=== PATIENT | male | born 1965 | race Caucasian/White ===

== ENCOUNTER 2020-06-30 12:11 | Emergency (ER) | payer BC ==
[~2020-06-30] VITALS: Ht 188 cm; Wt 117.9 kg
[2020-06-30] MEDS ORDERED: MORPHINE SULFAT15 MG PO (12:47)
[2020-06-30] MEDS ORDERED: ATIVAN0.5 MG PO (12:47)
[2020-06-30] MEDS ORDERED: NAPROSYN500 MG PO (12:47)
== END 2020-06-30 12:58 | disposition home or self-care (01) ==
LOC: ED 12:11
DX: S16.1XXA Strain of muscle, fascia and tendon at neck level, initial encounter (principal); F17.200 Nicotine dependence, unspecified, uncomplicated; Z91.030 Bee allergy status; V69.9XXA Occupant (driver) (passenger) of heavy transport vehicle injured in unspecified traffic accident, initial encounter
CPT/HCPCS: 99283

== ENCOUNTER 2020-07-04 11:33 | Emergency (ER) | payer OTHER, BC ==
[~2020-07-04] VITALS: Ht 188 cm; Wt 117.9 kg
[~2020-07-04 11:33] MED LIST: ATIVAN0.5 MG PO; MORPHINE SULFAT15 MG PO; NAPROSYN500 MG PO
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
== END 2020-07-04 15:47 | disposition home or self-care (01) ==
LOC: ED 11:33
DX: S16.1XXA Strain of muscle, fascia and tendon at neck level, initial encounter (principal); M54.12 Radiculopathy, cervical region; F17.200 Nicotine dependence, unspecified, uncomplicated; Z91.030 Bee allergy status; V29.59XA Motorcycle passenger injured in collision with other motor vehicles in traffic accident, initial encounter
CPT/HCPCS: 72141; 96374; 96375; 99283-25; J1885; J2060

== ENCOUNTER 2020-11-20 16:38 | Emergency (ER) | payer SELFPAY ==
[~2020-11-20] VITALS: Ht 188 cm; Wt 117.9 kg
[2020-11-20] MEDS ORDERED: PERCOCET 5-3251 EACH PO (18:29)
[2020-11-20] MEDS ORDERED: ULTRA-LIGHT RO1 EACH MISC (18:33)
[2020-11-20] MEDS ORDERED: PREDNISONE20 MG PO (19:06)
== END 2020-11-20 19:23 | disposition home or self-care (01) ==
LOC: ED 16:38
DX: S76.912A Strain of unspecified muscles, fascia and tendons at thigh level, left thigh, initial encounter (principal); W18.2XXA Fall in (into) shower or empty bathtub, initial encounter; F17.200 Nicotine dependence, unspecified, uncomplicated; Z91.030 Bee allergy status
CPT/HCPCS: 73502; 73552; 80053; 82550; 85025; 96374; 96375; 99283-25; J1100; J1170; J2270

== ENCOUNTER 2021-07-21 09:17 | Emergency (ER) | payer SELFPAY ==
[~2021-07-21] VITALS: Ht 188 cm; Wt 117.9 kg
[~2021-07-21 09:17] MED LIST changes: +PERCOCET 5-3251 EACH PO; +PREDNISONE20 MG PO; +ULTRA-LIGHT RO1 EACH MISC
[2021-07-21] MEDS ORDERED: PENICILLIN V P500 MG PO (13:07)
--- NOTE | 2021-07-22 19:02 | EKG ---
[facility] [address] [place] [address] Signed Sinus tachycardia with premature atrial complexes Right bundle branch block Left anterior fascicular block Bifascicular block Abnormal ECG No previous ECGs available Confirmed by EVELYNE MATUTE MD ([id number]) on 07/22/2021 7:02:22 PM Electronically Signed By: EVELYNE MATUTE MD 07/22/211901 PATIENT NAME: EMILYMAX Electrocardiogram DATE OF : 67 PHYSICIAN: EVELYNE MATUTE MD REPORT #: [id number] REPORT IS CONFIDENTIAL AND NOT TO BE RELEASED WITHOUT AUTHORIZATION
== END 2021-07-21 13:52 | disposition home or self-care (01) ==
LOC: ED 09:17
DX: R07.2 Precordial pain (principal); F15.90 Other stimulant use, unspecified, uncomplicated; K08.89 Other specified disorders of teeth and supporting structures; F17.200 Nicotine dependence, unspecified, uncomplicated; Z91.030 Bee allergy status
CPT/HCPCS: 71045; 80053; 81001; 83735; 84484; 85025; 93005; 93010; 96374; 96376; 99285-25; G0480; J2060; J7030

== ENCOUNTER 2021-08-20 15:54 | Emergency (ER) | payer OTHER ==
[~2021-08-20] VITALS: Ht 188 cm; Wt 117.9 kg
[~2021-08-20 15:54] MED LIST changes: +PENICILLIN V P500 MG PO
--- OUTSIDE RECORDS SUMMARY | 2021-08-20 16:00 | XMS ---
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 Care Guidelines exist for the following facilities: [facility] ( 02/17/2018 ) Care History Medical/Surgical 08/13/2016 [facility] Patient has been presenting to various ERs stating that he has glass in his eyes, up his nostrils, on his head, and neck. Upon each visit he has become argumentative with the provider stating "give me a provider that can see the glass" Patient in clear need of mental health resources but has declined attempts when offered. Patient has needed safety security officer upon discharge. Unknown if patient insured as he refuses to provide his SS numbr. Patient refuses to speak with someone to assist in getting insurance. EHugh. VISIT COUNT (12 MO.) 3 [facility] TOTAL 3 NOTE: Visits indicate total known visits. ED/UCC VISIT TRACKING (12 MO.) 08/20/2021 15:58 [facility] [place] TYPE: Emergency COMPLAINT: - RIGHT LEG INJ 07/21/2021 09:17 [facility] TYPE: Emergency COMPLAINT: - SOB, CHEST PAIN DIAGNOSES: - Other specified disorders of teeth and supporting structures - Nicotine dependence, unspecified, uncomplicated - Other stimulant use, unspecified, uncomplicated - Precordial pain - Chest pain, unspecified - Bee allergy status 11/20/2020 16:39 [facility] [place] TYPE: Emergency COMPLAINT: - L UPPER LEG PAIN/SWELLING DIAGNOSES: - Bee allergy status - Fall in (into) shower or empty bathtub, initial encounter - Nicotine dependence, unspecified, uncomplicated - Strain of unspecified muscles, fascia and tendons at thigh level, left thigh, initial encounter - Pain in left hip INPATIENT VISIT TRACKING (12 MO.) No inpatient visits to display in this time frame [id number]
[2021-08-20] MEDS ORDERED: CEPHALEXIN500 M1 PO (18:28)
[2021-08-20] MEDS ORDERED: HYDROCODON-ACE1 EA10 PO (18:28)
== END 2021-08-20 19:10 | disposition home or self-care (01) ==
LOC: ED 15:54
DX: S81.811A Laceration without foreign body, right lower leg, initial encounter (principal); Z23 Encounter for immunization; L03.115 Cellulitis of right lower limb; F17.200 Nicotine dependence, unspecified, uncomplicated; W31.89XA Contact with other specified machinery, initial encounter; Y99.0 Civilian activity done for income or pay; Z91.030 Bee allergy status
CPT/HCPCS: 73590; 73610; 90471; 90715; 99283-25

== ENCOUNTER 2021-08-24 16:47 | Emergency (ER) | payer OTHER ==
[~2021-08-24] VITALS: Ht 188 cm; Wt 122.5 kg
[~2021-08-24 16:47] MED LIST changes: +CEPHALEXIN500 M1 PO; +HYDROCODON-ACE1 EA10 PO
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
[2021-08-24] MEDS ORDERED: BACTRIM DS TAB1 EACH PO (19:21)
== END 2021-08-24 19:56 | disposition home or self-care (01) ==
LOC: ED 16:47
DX: S81.811D Laceration without foreign body, right lower leg, subsequent encounter (principal); L03.115 Cellulitis of right lower limb; F17.200 Nicotine dependence, unspecified, uncomplicated; Z91.038 Other insect allergy status; Z79.899 Other long term (current) drug therapy
CPT/HCPCS: 96372; 99283; J2270